=== PATIENT | female | born 2000 | race Caucasian/White ===

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

== ENCOUNTER 2018-11-19 00:20 | Observation (INO) | payer BC ==
[2018-11-19] VITALS (14 sets, daily range): BP systolic 104–128; BP diastolic 63–87
[~2018-11-19] VITALS: Ht 162.6 cm; Wt 70.8 kg
[2018-11-19] MEDS ORDERED: NS(*) 0.9% 1000 ML BAG 1,000 ML IV ONE (00:29)
[2018-11-19] MEDS ORDERED: fentaNYL CITR 100 MCG/2 ML AMP IVP ONE (00:30)
[2018-11-19] MEDS ORDERED: ONDANSETRON 4 MG/2 ML VIAL IVP ONE (00:30)
[2018-11-19] MEDS ORDERED: ETON1VAG7 VG (00:34)
[2018-11-19 00:54] LABS: PLATELET COUNT, AUTOMATED 289 K/uL (150-450)
[2018-11-19] MEDS ORDERED: KETOROLAC 30 MG/ML VIAL IVP ONE (00:55)
[2018-11-19] MEDS ORDERED: HYDROMORPHONE HCL 1 MG/ML SYRINGE IVP ONE ×2 (01:30→02:30)
[2018-11-19] MEDS ORDERED: IOPAMIDOL 61% 75 ML INFUS BTL 75 ML ONE (01:40)
--- NOTE | 2018-11-19 02:14 | RADIOLOGY IMAGING REPORT ---
FACILITY: [facility] PATIENT NAME: Mouna Humphries : 2000 MR: [id number] V: [id number] EXAM DATE: ORDERING PHYSICIAN: ABDULAZIZ BALBUENA TECHNOLOGIST: Location: [facility] [place] Patient: Mouna Humphries : 2000 Visit/Account:[id number] Date of Sevice: 11/19/2018 EXAMINATION: CT abdomen with IV contrast CT pelvis with IV contrast HISTORY: Severe right flank pain. COMPARISON: None. TECHNIQUE: Axial images were taken through the abdomen and pelvis with intravenous contrast. Sagitt al and coronal reformatted images are also submitted. CONTRAST: 75 mL of IV Isovue-370. One of the following dose optimization techniques was utilized in the performance of this exam: Autom ated exposure control; adjustment of the mA and/or kV according to the patient's size; or use of an i terative reconstruction technique. Specific details can be referenced in the facility's radiology C T exam operational policy. FINDINGS: Liver/biliary: Negative. Pancreas: Negative. Spleen: Negative. Adrenal glands: Negative. Kidneys: There are no renal stones visualized. Symmetric bilateral nephrograms without hydronephrosis . Pelvic structures: Uterus and ovaries are normal in appearance by CT. There is a ring contro l device in the upper vagina. Bowel: The appendix is abnormal. There is a 4 mm calcified appendicolith at the base of the appendix, and the appendix is retrocecal, extending posteriorly and superior to the cecum. The appendix is flu id-filled with enhancement of the arvizu measuring 8 mm (sagittal image 45 series 5). Peritoneum/retroperitoneum/mesenteries: Fat stranding adjacent to the appendix. No free air or fluid. Vessels: Negative. Musculoskeletal/body wall: Negative. Lymph nodes: Negative. Lower chest: Negative. IMPRESSION: Acute appendicitis of a retrocecal appendix. These findings were discussed with ABDULAZIZ BALBUENA at 11/19/2018 2:08 AM. Report Dictated By: Smitha Pollock MD at 11/19/2018 2:01 AM Report E-Signed By: Smitha Pollock MD at 11/19/2018 2:09 AM WSN:[id number]
--- NOTE | 2018-11-19 02:19 | ER Report ---
History and Physical Time Seen By MD: 00:27 Hx. of Stated Complaint: RIGHT SIDED LOWER ABDOMINAL PAIN STARTED 1 HOUR AGO HPI/ROS CHIEF COMPLAINT: Right lateral abdominal pain HISTORY OF PRESENT ILLNESS: 18-year-old female presented to the ER with acute onset of pain, one to 2 hours prior to arrival in the right lateral aspect of her abdomen. Patient notes severe nausea but no vomiting. She notes no dysuria or hematuria. Patient denies history of kidney stones. Patient has a history of a horse falling on her in June where she bruised her intestines. REVIEW OF SYSTEMS: Respiratory: No cough, no dyspnea. Cardiovascular: No chest pain, no palpitations. Gastrointestinal: As above Musculoskeletal: As above Allergies: Coded Allergies: No Known Drug Allergies (Unverified , 11/19/18) Home Meds Active Scripts Docusate Sodium (DOCUSATE SODIUM) 100 Mg Capsule, 1 CAP PO BID, #30 CAPSULE 0 Refills Prov:JASON MANCIA MD 11/19/18 Oxycodone/Acetaminophen (OXYCODONE/ACETAMINOPHEN 5MG/325 MG) 5 Mg/325 Mg Tab, 1 TAB PO Q4H PRN for PAIN, #20 TAB 0 Refills Prov:JASON MANCIA MD 11/19/18 Reported Medications Etonogestrel/Ethinyl Estradiol (NUVARING VAGINAL RING) 1 Each Vag.ring, 1 EACH VG, VAG.RING 11/19/18 Reviewed Nurses Notes: Yes Old Medical Records Reviewed: Yes Constitutional Vital Sign - Last 24 Hours 11/19/18 11/19/18 11/19/18 11/19/18 00:27 00:27 00:30 00:50 Temp 98.2 Pulse 115 ??? Resp 20 B/P (MAP) 130/87 130/87 (101) 141/72 (95) Pulse Ox 95 95 O2 Delivery Room Air 11/19/18 11/19/18 11/19/18 11/19/18 01:00 01:20 01:30 01:48 Pulse 82 B/P (MAP) 109/72 (84) 111/91 (98) 108/80 (89) Pulse Ox 95 11/19/18 11/19/18 11/19/18 11/19/18 01:50 02:00 02:01 02:06 Pulse 90 91 B/P (MAP) 101/65 (77) Pulse Ox 94 94 95 11/19/18 11/19/18 02:30 02:36 Pulse 101 B/P (MAP) 110/79 (89) Pulse Ox 93 Physical Exam General Appearance: The patient is alert, has no immediate need for airway protection and no current signs of toxicity. Moderate distress, vital signs stable, afebrile, pulse ox normal HEENT: Pupils equal and round no injection. Oropharynx without redness or exudate, mucous members are moist Respiratory: Chest is non tender, lungs are clear to auscultation. Cardiac: regular rate and rhythm Gastrointestinal: Abdomen is soft and non tender, no masses, bowel sounds normal. [place]. There is moderate tenderness high lateral middle quadrant. No rebound or guarding Musculoskeletal: Neck: Neck is supple and non tender. Extremities: Normal range of motion, no edema Skin: No rashes or lesions. DIFFERENTIAL DIAGNOSIS: After history and physical exam differential diagnosis was considered for abdominal pain including but not limited to appendicitis, cholecystitis, gastritis and urinary tract infection. Additionally,flank pain including but not limited to musculoskeletal causes, kidney stone, pyelonephritis, shingles, and intra-abdominal causes such as diverticulitis and appendicitis. Medical Decision Making Data Points Result Diagram: 11/19/18 0033 11/19/18 0033 Laboratory Hematology Test 11/19/18 00:25 11/19/18 00:33 Urine Color Straw Urine Clarity Clear Urine pH 6.0 pH (4.8-9.5) Urine Specific Mitchell 1.008 Urine Protein Negative mg/dL (NEGATIVE) Urine Glucose (UA) Negative mg/dL (NEGATIVE) Urine Ketones Negative mg/dL (NEGATIVE) Urine Blood Negative (NEGATIVE) Urine Nitrite Negative (NEGATIVE) Urine Bilirubin Negative (NEGATIVE) Urine Urobilinogen Negative mg/dL (0.2-1.9) Urine Leukocyte Esterase Negative (NEGATIVE) Urine RBC <1 /HPF (0-2/HPF) Urine WBC 2 /HPF (0-5/HPF) Urine Squamous Epithelial Cells Many /LPF (</=FEW) Urine Transitional Epithelial Cells Few /LPF (NONE-FEW) Urine Bacteria Few /HPF (NONE-FEW) Urine Mucus None /HPF (NONE-FEW) Red Blood Count 4.99 M/uL (4.17-5.56) Mean Corpuscular Volume 87.9 fL (80.0-96.0) Mean Corpuscular Hemoglobin 30.1 pg (26.0-33.0) Mean Corpuscular Hemoglobin Concent 34.2 g/dL (32.0-36.0) Red Cell Distribution Width 12.5 % (11.5-14.5) Mean Platelet Volume 6.6 fL (7.2-11.1) Neutrophils (%) (Auto) 54.8 % (39.4-72.5) Lymphocytes (%) (Auto) 37.5 % (17.6-49.6) Monocytes (%) (Auto) 6.9 % (4.1-12.4) Eosinophils (%) (Auto) 0.5 % (0.4-6.7) Basophils (%) (Auto) 0.3 % (0.3-1.4) Nucleated RBC Relative Count (auto) 0.0 /100WBC Neutrophils # (Auto) 4.6 K/uL (2.0-7.4) Lymphocytes # (Auto) 3.2 K/uL (1.3-3.6) Monocytes # (Auto) 0.6 K/uL (0.3-1.0) Eosinophils # (Auto) 0.0 K/uL (0.0-0.5) Basophils # (Auto) 0.0 K/uL (0.0-0.1) Nucleated RBC Absolute Count (auto) 0.00 K/uL D-Dimer Quantitative (PE/DVT) 0.35 ug/ml (0-0.50) Sodium Level 140 mmol/L (137-145) Potassium Level 3.4 mmol/L (3.5-5.0) Chloride Level 108 mmol/L (98-107) Carbon Dioxide Level 20 mmol/L (22-31) Blood Urea Nitrogen 10 mg/dl (7-18) Creatinine 0.70 mg/dl (0.52-1.04) Glomerular Filtration Rate Calc > 60.0 Random Glucose 88 mg/dl (75-110) Calcium Level 9.0 mg/dl (8.4-10.2) Total Bilirubin 0.3 mg/dl (0.2-1.3) Aspartate Amino Transf (AST/SGOT) 33 U/L (0-35) Alanine Aminotransferase (ALT/SGPT) 39 U/L (0-56) Alkaline Phosphatase 57 U/L (0-126) Total Protein 7.1 g/dl (6.3-8.2) Albumin 4.4 g/dl (3.5-5.0) Amylase Level 84 U/L (0-110) Lipase 118 U/L (23-300) Human Chorionic Gonadotropin, Qual Negative (NEGATIVE) Chemistry Test 11/19/18 00:25 11/19/18 00:33 Urine Color Straw Urine Clarity Clear Urine pH 6.0 pH (4.8-9.5) Urine Specific Mitchell 1.008 Urine Protein Negative mg/dL (NEGATIVE) Urine Glucose (UA) Negative mg/dL (NEGATIVE) Urine Ketones Negative mg/dL (NEGATIVE) Urine Blood Negative (NEGATIVE) Urine Nitrite Negative (NEGATIVE) Urine Bilirubin Negative (NEGATIVE) Urine Urobilinogen Negative mg/dL (0.2-1.9) Urine Leukocyte Esterase Negative (NEGATIVE) Urine RBC <1 /HPF (0-2/HPF) Urine WBC 2 /HPF (0-5/HPF) Urine Squamous Epithelial Cells Many /LPF (</=FEW) Urine Transitional Epithelial Cells Few /LPF (NONE-FEW) Urine Bacteria Few /HPF (NONE-FEW) Urine Mucus None /HPF (NONE-FEW) White Blood Count 8.4 k/uL (4.5-11.0) Red Blood Count 4.99 M/uL (4.17-5.56) Hemoglobin 15.0 g/dL (12.0-16.0) Hematocrit 43.9 % (34.0-47.0) Mean Corpuscular Volume 87.9 fL (80.0-96.0) Mean Corpuscular Hemoglobin 30.1 pg (26.0-33.0) Mean Corpuscular Hemoglobin Concent 34.2 g/dL (32.0-36.0) Red Cell Distribution Width 12.5 % (11.5-14.5) Platelet Count 289 K/uL (150-450) Mean Platelet Volume 6.6 fL (7.2-11.1) Neutrophils (%) (Auto) 54.8 % (39.4-72.5) Lymphocytes (%) (Auto) 37.5 % (17.6-49.6) Monocytes (%) (Auto) 6.9 % (4.1-12.4) Eosinophils (%) (Auto) 0.5 % (0.4-6.7) Basophils (%) (Auto) 0.3 % (0.3-1.4) Nucleated RBC Relative Count (auto) 0.0 /100WBC Neutrophils # (Auto) 4.6 K/uL (2.0-7.4) Lymphocytes # (Auto) 3.2 K/uL (1.3-3.6) Monocytes # (Auto) 0.6 K/uL (0.3-1.0) Eosinophils # (Auto) 0.0 K/uL (0.0-0.5) Basophils # (Auto) 0.0 K/uL (0.0-0.1) Nucleated RBC Absolute Count (auto) 0.00 K/uL D-Dimer Quantitative (PE/DVT) 0.35 ug/ml (0-0.50) Glomerular Filtration Rate Calc > 60.0 Calcium Level 9.0 mg/dl (8.4-10.2) Total Bilirubin 0.3 mg/dl (0.2-1.3) Aspartate Amino Transf (AST/SGOT) 33 U/L (0-35) Alanine Aminotransferase (ALT/SGPT) 39 U/L (0-56) Alkaline Phosphatase 57 U/L (0-126) Total Protein 7.1 g/dl (6.3-8.2) Albumin 4.4 g/dl (3.5-5.0) Amylase Level 84 U/L (0-110) Lipase 118 U/L (23-300) Human Chorionic Gonadotropin, Qual Negative (NEGATIVE) Coagulation Test 11/19/18 00:33 D-Dimer Quantitative (PE/DVT) 0.35 ug/ml Urinalysis Test 11/19/18 00:25 Urine Color Straw Urine Clarity Clear Urine pH 6.0 pH (4.8-9.5) Urine Specific Mitchell 1.008 Urine Protein Negative mg/dL (NEGATIVE) Urine Glucose (UA) Negative mg/dL (NEGATIVE) Urine Ketones Negative mg/dL (NEGATIVE) Urine Blood Negative (NEGATIVE) Urine Nitrite Negative (NEGATIVE) Urine Bilirubin Negative (NEGATIVE) Urine Urobilinogen Negative mg/dL (0.2-1.9) Urine Leukocyte Esterase Negative (NEGATIVE) Urine RBC <1 /HPF (0-2/HPF) Urine WBC 2 /HPF (0-5/HPF) Urine Squamous Epithelial Cells Many /LPF (</=FEW) Urine Transitional Epithelial Cells Few /LPF (NONE-FEW) Urine Bacteria Few /HPF (NONE-FEW) Urine Mucus None /HPF (NONE-FEW) EKG/Imaging Imaging Results: CT scan of the abdomen and pelvis with IV contrast was obtained. The results of the study are CT abdomen with IV contrast CT pelvis with IV contrast HISTORY: Severe right flank pain. COMPARISON: None. TECHNIQUE: Axial images were taken through the abdomen and pelvis with intra venous contrast. Sagittal and coronal reformatted images are also submitted. CONTRAST: 75 mL of IV Isovue-370. One of the following dose optimization techniques was utilized in the performance of this exam: Automated exposure control; adjustment of the mA and/or kV according to the patient's size; or use of an iterative reconstruction technique. Specific details can be referenced in the facility's radiology CT exam operational policy. FINDINGS: Liver/biliary: Negative. Pancreas: Negative. Spleen: Negative. Adrenal glands: Negative. Kidneys: There are no renal stones visualized. Symmetric bilateral nephrograms without hydronephrosis. Pelvic structures: Uterus and ovaries are normal in appearance by CT. There is a ring control device in the upper vagina. Bowel: The appendix is abnormal. There is a 4 mm calcified appendicolith at the base of the appendix, and the appendix is retrocecal, extending posteriorly and superior to the cecum. The appendix is fluid-filled with enhancement of the arvizu measuring 8 mm (sagittal image 45 series 5). Peritoneum/retroperitoneum/mesenteries: Fat stranding adjacent to the appendix. No free air or fluid. Vessels: Negative. Musculoskeletal/body wall: Negative. Lymph nodes: Negative. Lower chest: Negative. IMPRESSION: Acute appendicitis of a retrocecal appendix. The study was read by the radiologist. I viewed the images myself on the PACS system. ED Course/Re-evaluation Clinical Indication for ER IV: Hydration, IV Access ED Course Patient was admitted to an examination room. H&P was done. The differential diagnoses was considered. On clinical examination. Patient has high right middle quadrant abdominal pain on palpation. It's moderately tender. Patient's diagnostic studies are unremarkable. She is treated with Toradol, fentanyl and Zofran. She's given a liter fluid. She continues to have sick difficulty and discomfort. A CT scan of the abdomen and pelvis is ordered. She requires Dilaudid for pain relief. The CAT scan is positive for acute appendicitis. Patient was administered Zosyn 4.5 g here in the emergency department. 11/19/2018 2:26:59 am case discussed with Dr. Willard Laguna, general surgery on- call, who questioned patient be administered IV antibiotics and be admitted to the hospital. He will take her to the OR system 1st case in the morning in several hours. Holding orders were written. Decision to Disposition Date: Nov 19, 2018 Decision to Disposition Time: 02:18 Depart Departure Latest Vital Signs Vital Signs Date Time Temp Pulse Resp B/P (MAP) Pulse Ox O2 Delivery O2 Flow Rate FiO2 11/19/18 02:36 101 93 11/19/18 02:30 110/79 (89) 11/19/18 00:27 98.2 20 Room Air Impression: Primary Impression: Acute appendicitis Condition: Improved Disposition: Admitted from ER New Scripts Docusate Sodium (DOCUSATE SODIUM) 100 Mg Capsule 1 CAP PO BID, #30 CAPSULE 0 Refills Prov: JASON MANCIA MD 11/19/18 Oxycodone/Acetaminophen (OXYCODONE/ACETAMINOPHEN 5MG/325 MG) 5 Mg/325 Mg Tab 1 TAB PO Q4H PRN for PAIN, #20 TAB 0 Refills Prov: JASON MANCIA MD 11/19/18 Problem Qualifiers Primary Impression: Acute appendicitis Acute appendicitis type: with localized peritonitis Appendicitis gangrene presence: without gangrene Appendicitis perforation presence: without perforation Appendicitis abscess presence: without abscess Qualified Codes: K35.30 - Acute appendicitis with localized peritonitis, without perforation or gangrene ABDULAZIZ BALBUENA DO Nov 19, 2018 02:19
[2018-11-19] MEDS ORDERED: LR(*) 1000 ML BAG 1,000 ML IV PRN (02:30)
[2018-11-19] MEDS ORDERED: PIPERACILLIN/TAZO* 4.5 GM VIAL 4.5 GM in NS(*) 0.9% 100 ML ADDVANT BAG 100 ML IVPB ONE (02:30)
[2018-11-19] MEDS ORDERED: MORPHINE 4 MG/ML SDV IVP PRN (03:25)
[2018-11-19] MEDS ORDERED: LR 1000 ML IV PRN (03:25)
[2018-11-19] MEDS ORDERED: HYDROmorphone* 1 MG/ML 1 MG/ML ML IVP PRN (03:25)
[2018-11-19] MEDS ORDERED: ONDANSETRON 4 MG/2 ML VIAL IVP PRN ×2 (03:25→05:30)
[2018-11-19] MEDS ORDERED: FAMOTIDINE(*) 20MG/50ML PREMIX 50 ML IVPB ONE (05:19)
[2018-11-19] MEDS ORDERED: NORMOSOL R SOLN(*) 1000 ML BAG 1,000 ML IV ONE (05:20)
[2018-11-19] MEDS ORDERED: NS(*) 0.9% 1000 ML BAG 1,000 ML IV PRN (05:26)
[2018-11-19] MEDS ORDERED: FLUSH 10 ML SYR IVP PRN (05:30)
[2018-11-19] MEDS ORDERED: MORPHINE 2 MG/ML SYR IVP PRN (05:30)
--- NOTE | 2018-11-19 05:34 | Gen Surgery History & Physical ---
History of Present Illness Chief Complaint Right sided abdominal pain History of Present Illness 18yo female presents to the ER with 4 hours of right sided abdominal pain. CT c/w appendicitis. No anorexia, fevers, chills, diarrhea, constipation. She's recently had viral URI but now better. No h/o abdominal surgery. History Home Meds Reported Medications Etonogestrel/Ethinyl Estradiol (NUVARING VAGINAL RING) 1 Each Vag.ring, 1 EACH VG, VAG.RING 11/19/18 Allergies: Coded Allergies: No Known Drug Allergies (Unverified , 11/19/18) Patient History: FH: prostate cancer Review of Systems All Systems Reviewed/Normal: Yes, Except as Noted Gastrointestinal: Abdominal Pain Exam General Appearance: Alert, Awake, No Acute Distress, Afebrile Neuro: No Gross deficits Eyes: PERRLA GI: Other (Soft RLQ TTP focal peritoneal irritation) Extremities: Warm, Perfused Psych: Alert & Oriented X3, Appropriate Mood & Affect Medical Decision Making Data Points Result Diagram: 11/19/18 0033 11/19/18 0033 Assessment and Plan Problems: (1) Acute appendicitis Status: Acute Assessment & Plan: 11/19/18: Admit, NPO, IV fluids, IV abx, to OR this morning for lap appy. I have explained this plan and the surgery with the patient in great detail along with the alternatives, risks, and expected recovery. She indicates her understanding of this discussion and her questions have been answered. She would like to proceed with this plan including surgery. Condition Stable. Time Spent: < 30 min Venous Thromboembolism VTE Risk Physician Assess for VTE Risk: Yes Patient's VTE Risk: Low VTE Diagnostic Test 2 Days Prior to Admit: No Antithrombotics Is Pt On Any Antithrombotics?: No Problem Qualifiers (1) Acute appendicitis: Acute appendicitis type: with localized peritonitis Appendicitis gangrene presence: without gangrene Appendicitis perforation presence: without perforation Appendicitis abscess presence: without abscess Qualified Codes: K35.30 - Acute appendicitis with localized peritonitis, without perforation or gangrene JASON MANCIA MD Nov 19, 2018 05:34
[2018-11-19] MEDS ORDERED: MIDAZOLAM 2 MG/2 ML VIAL IVP PRN (06:15)
[2018-11-19] MEDS ORDERED: ONDANSETRON 4 MG/2 ML VIAL ONE (07:04)
[2018-11-19] MEDS ORDERED: SUCCINYLCHOL CHL 200MG/10ML VL ONE (07:04)
[2018-11-19] MEDS ORDERED: SUGAMMADEX SOD 500 MG/5 ML SDV ONE (07:04)
[2018-11-19] MEDS ORDERED: DEXAMETHASONE SOD PHOS 10MG/ML ONE (07:04)
[2018-11-19] MEDS ORDERED: PROPOFOL EMUL(*) 10MG/ML 20 ML 20 ML ONE (07:04)
[2018-11-19] MEDS ORDERED: KETOROLAC 30 MG/ML VIAL ONE (07:04)
[2018-11-19] MEDS ORDERED: PER PO (07:27)
[2018-11-19] MEDS ORDERED: DOCU-202 PO (07:27)
--- NOTE | 2018-11-19 07:29 | Short(Outpt) Discharge Summary ---
Discharge Summary Reason for Hosp/Final Diag: (1) Acute appendicitis Status: Acute Hospital Course & Plan: 11/19/18: Admit, NPO, IV fluids, IV abx, to OR this morning for lap amanday. I have explained this plan and the surgery with the patient in great detail along with the alternatives, risks, and expected recovery. She indicates her understanding of this discussion and her questions have been answered. She would like to proceed with this plan including surgery. 11/19/18 (postop): Lap appy completed without problems. Will d/c to home after she recovers from anesthesia this morning. Departure Discharge to: Home, Self Care Discharge Instructions Home Meds Active Scripts Docusate Sodium (DOCUSATE SODIUM) 100 Mg Capsule, 1 CAP PO BID, #30 CAPSULE 0 Refills Prov:JASON MANCIA MD 11/19/18 Oxycodone/Acetaminophen (OXYCODONE/ACETAMINOPHEN 5MG/325 MG) 5 Mg/325 Mg Tab, 1 TAB PO Q4H PRN for PAIN, #20 TAB 0 Refills Prov:JASON MANCIA MD 11/19/18 Reported Medications Etonogestrel/Ethinyl Estradiol (NUVARING VAGINAL RING) 1 Each Vag.ring, 1 EACH VG, VAG.RING 11/19/18 Follow up Referrals: General Surgery - 12/03/18 @ Surgery, General with JASON MANCIA MD You have a follow up appointment scheduled with Dr. Mancia on 12/03/18, at 9:00am. Diet: Regular Activity: As Tolerated Special Instructions: You may remove the white surgical dressings on 11/21/18, then you can shower. After showering, leave the incisions open to air but leave the steristrips in place until they fall off on their own. Do not immerse the incisions for 2 weeks. Avoid any activity that involves straining or lifting more than 10 pounds for 2 weeks after surgery. Problem Qualifiers (1) Acute appendicitis: Acute appendicitis type: with localized peritonitis Appendicitis gangrene presence: without gangrene Appendicitis perforation presence: without perforation Appendicitis abscess presence: without abscess Qualified Codes: K35.30 - Acute appendicitis with localized peritonitis, without perforation or gangrene JASON MANCIA MD Nov 19, 2018 07:29
[2018-11-19] MEDS ORDERED: fentaNYL CITR 100 MCG/2 ML AMP ONE (07:32)
--- NOTE | 2018-11-19 07:50 | Post Operative Progress Note ---
Post Operative Progress Note Date: Nov 19, 2018 Time: 07:30 Surgeon: Arnulfo Dictation number: [id number] Anesthesia: GETA by Dr. Oro Pre-Op Diagnosis: Acute appendicitis Post-Op Diagnosis: GE Findings: Inflamed but non-gangrenous or perforated appendix Procedure(s): Lap appy Specimen Removed:(May be N/A): Appendix Complications: None Fluids: See anesthesia record Estimated Blood Loss: Minimal Date OP Note Dictated: Nov 19, 2018 Time OP Note Dictated: 07:31 JASON MANCIA MD Nov 19, 2018 07:50
--- NOTE | 2018-11-19 08:20 | OPERATIVE REPORT 1 ---
EVENT DATE: November 19, 2018 SURGEON: Tony Arredondo MD ANESTHESIOLOGIST: Pako Oro MD ANESTHESIA: General endotracheal. PREOPERATIVE DIAGNOSIS Acute appendicitis. POSTOPERATIVE DIAGNOSIS Acute appendicitis. PROCEDURE PERFORMED Laparoscopic appendectomy. COMPLICATIONS None. CONDITION Stable. ESTIMATED BLOOD LOSS Minimal. INDICATIONS The patient is a 18-year-old female who presented to the emergency room with right sided abdominal pain with a CT scan that was consistent with acute appendicitis. She provided consent for a laparoscopic appendectomy. DESCRIPTION OF PROCEDURE The patient was brought to the operating room and placed supine on the operating table. General endotracheal anesthesia was administered and her abdomen was prepped and draped in a sterile fashion. A time-out was completed and I injected the infraumbilical skin with 0.5% ropivacaine plain. I made a curvilinear smiley-face incision in the infraumbilical rim and dissected through the dermis and subcutaneous fat. I identified the midline fascia and made a vertical incision in the midline fascia, grasped the fascial edges with Amy clamps and retracted the abdominal wall towards the ceiling, away from the underlying viscera. I penetrated the peritoneal cavity with my finger. I placed two interrupted 0 Vicryl sutures transversely through the vertical fascia defect and inserted a 12 mm Richardson type port through this wound and secured it into place with a suture. I insufflated the abdomen to a pressure of 15 mmHg and inserted a 5 mm, 30-degree angled scope through this port. Under direct visualization, I placed a 5 mm suprapubic port in the midline and then another 5 mm left lower quadrant port. The patient was placed in Trendelenburg and planed towards her left to remove the viscera away from the right lower quadrant. Then I swept the bowel from the right lower quadrant. Immediately, I could identify the base of the appendix, which was preceding retrocecally but rather loosely so, such that I did not really require any mobilization of the cecum. I pulled the appendix into view and divided the mesoappendix with the LigaSure device down to the base and then used the Endo-YULIA stapler with a blue load to divide the base of the appendix flush with the cecum and the appendix was placed in a surgical specimen retrieval bag and removed from the abdomen through the umbilical port site. I irrigated and dried the right lower quadrant and removed a couple of straight david. There was a little bit of oozing from the staple line and this was controlled with a single 5 mm clip. At the end of this, the divided mesoappendix and staple line were completely hemostatic and everything looked really good and I did not find any evidence of other intra-abdominal pathology. I then removed the 5 mm ports and then desufflated the abdomen and removed the camera from the umbilical port. I then placed another 0 Vicryl [id number] sutures transversely through the vertical fascial defect between the first two sutures and tied all three of these down. Good reapproximation of the fascial edges. I then closed the skin of each port site with 4-0 Monocryl subcuticular suture. Skin was cleaned and dried and Steri-Strips were applied followed by sterile surgical dressings. The patient was awakened, extubated in the operating room and transported to the recovery room in stable condition, having tolerated the procedure without any apparent problems. MEÑO
[2018-11-19] MEDS ORDERED: PIPERACILLIN/TAZO*3.375GM VIAL 3.375 GM in NS(*) 0.9% 100 ML ADDVANT BAG 100 ML IVPB ONE (08:30)
[2018-11-19] MEDS ORDERED: PANTOPRAZOLE SOD 40 MG IV VIAL IVP SCH (09:00)
[2018-11-19] MEDS ORDERED: DOCUSATE SODIUM 100 MG CAP PO SCH (09:00)
== END 2018-11-19 13:50 | disposition home or self-care (01) ==
LOC: ER 00:33 → MED 02:37 → INTOOBSV 02:37
PROVIDERS: ADMIT Surgery; ATTEND Surgery
DX: K35.30 Acute appendicitis with localized peritonitis, without perforation or gangrene (principal)
CPT/HCPCS: 44970; 74177; 81001; 82150; 83690; 84703; 85025; 85379; 88304; 96361; 96365; 96375; 96376; 99284; C9113; G0378; J0330; J1100; J1170; J1885; J2250; J2405; J2543; J2704; J3010; J7030; J7050; J7120; Q9967; 82040; 82247; 82310; 82374; 82435; 82565; 82947; 84075; 84132; 84155; 84295; 84450; 84460; 84520

== ENCOUNTER 2018-11-21 21:30 | Emergency (ER) | payer BC ==
[~2018-11-21 21:30] MED LIST: DOCU-202 PO; ETON1VAG7 VG; PER PO
--- NOTE | 2018-11-21 21:50 | ER Report ---
History and Physical Time Seen By MD: 21:50 Hx. of Stated Complaint: PATIENT STATES THAT SHE HAD HER APPENDIX OUT ON THURSDAY; PATIENT HAS NOT HAD A BOWEL MOVEMENT SINCE THEN AND IS HAVING PAIN AROUND HER BELLY BUTTON. HPI/ROS CHIEF COMPLAINT: abdominal pain HISTORY OF PRESENT ILLNESS: This is a 18 year old female. She had her appendix out 2 days ago. Has increasing abdominal pain since then. Shakila-umbilical. Has not had a bowel movement since the surgery. Is passing gas. No problems with dysuria, and is still urinating. Has been drinking fluids, but feels full and having nausea. Taking her stool softener. Using Percocet for pain, but not working very well, especially today. No shortness of breath or chest pain. Allergies: Coded Allergies: No Known Drug Allergies (Unverified , 11/19/18) Home Meds Active Scripts Docusate Sodium (DOCUSATE SODIUM) 100 Mg Capsule, 1 CAP PO BID, #30 CAPSULE 0 Refills Prov:JASON MANCIA MD 11/19/18 Oxycodone/Acetaminophen (OXYCODONE/ACETAMINOPHEN 5MG/325 MG) 5 Mg/325 Mg Tab, 1 TAB PO Q4H PRN for PAIN, #20 TAB 0 Refills Prov:JASON MANCIA MD 11/19/18 Reported Medications Etonogestrel/Ethinyl Estradiol (NUVARING VAGINAL RING) 1 Each Vag.ring, 1 EACH VG, VAG.RING 11/19/18 Reviewed Nurses Notes: Yes Hx Smoking: No Smoking Status: Never Smoker Hx Substance Use Disorder: No Hx Alcohol Use: Yes Constitutional Vital Sign - Last 24 Hours 11/21/18 11/21/18 11/21/18 11/21/18 21:38 21:39 22:00 22:30 Temp 98.4 Pulse 67 63 62 Resp 18 B/P (MAP) 117/77 (90) 117/77 109/73 (85) 108/66 (80) Pulse Ox 96 92 94 O2 Delivery Room Air 11/21/18 11/21/18 11/21/18 11/21/18 23:00 23:05 23:30 23:35 Pulse 55 ? B/P (MAP) 113/74 (87) ???/??? (7805) Pulse Ox 93 11/22/18 11/22/18 11/22/18/25/19 00:08 00:30 00:35 00:40 Pulse 66 63 B/P (MAP) 108/87 (94) 115/73 (87) Pulse Ox 91 89 11/22/18 11/22/18 11/22/18 11/22/18 01:00 01:10 01:40 01:57 Pulse 69 72 B/P (MAP) 112/74 (87) 116/76 (89) 113/66 (82) Pulse Ox 92 93 Intake and Output 11/21/18 11/21/18 11/22/18 15:00 23:00 07:00 Intake Total 1000 ml Balance 1000 ml Physical Exam General Appearance: The patient is alert. Having mild distress due to pain. Non-toxic in appearance. Eyes: Pupils are equal, round. No pallor, injection or icterus. ENT: Mucous membranes are moist. Respiratory: Lungs are clear to auscultation. Cardiovascular: Regular rate and rhythm. No murmurs, gallops or rubs. No edema. Gastrointestinal: Abdomen is soft, tender, mostly shakila-umbilical area. Nondistended. Hyperactive bowel sounds. Guarding, but no rebound. No costoverteb ral angle tenderness with percussion. Neurological: Alert and oriented x3. Cranial nerves II through XII show no acute deficits on my exam. No focal neurologic deficits in the extremities. Skin: Warm and dry. No scalp hematomas noted. Musculoskeletal: Extremities are nontender. No tenderness in palpation of the cervical, thoracic and lumbar spine. No pain with palpation of the scalp. DIFFERENTIAL DIAGNOSIS: After history and physical exam, differential diagnosis was considered for syncope including but not limited to vasovagal syncope, arrhythmia, dehydration, and blood loss. Also concerned about the possibility of head injury with concussion or intracranial bleed. Medical Decision Making Data Points Result Diagram: 11/21/18223011/21/182230 Laboratory Hematology Test 11/21/18 22:31 Red Blood Count 4.61 M/uL (4.17-5.56) Mean Corpuscular Volume 88.6 fL (80.0-96.0) Mean Corpuscular Hemoglobin 29.6 pg (26.0-33.0) Mean Corpuscular Hemoglobin Concent 33.4 g/dL (32.0-36.0) Red Cell Distribution Width 12.5 % (11.5-14.5) Mean Platelet Volume 6.7 fL (7.2-11.1) Neutrophils (%) (Auto) 29.1 % (39.4-72.5) Lymphocytes (%) (Auto) 62.0 % (17.6-49.6) Monocytes (%) (Auto) 7.0 % (4.1-12.4) Eosinophils (%) (Auto) 1.5 % (0.4-6.7) Basophils (%) (Auto) 0.4 % (0.3-1.4) Nucleated RBC Relative Count (auto) 0.0 /100WBC Neutrophils # (Auto) 1.8 K/uL (2.0-7.4) Lymphocytes # (Auto) 3.8 K/uL (1.3-3.6) Monocytes # (Auto) 0.4 K/uL (0.3-1.0) Eosinophils # (Auto) 0.1 K/uL (0.0-0.5) Basophils # (Auto) 0.0 K/uL (0.0-0.1) Nucleated RBC Absolute Count (auto) 0.00 K/uL Sodium Level 138 mmol/L (137-145) Potassium Level 3.6 mmol/L (3.5-5.0) Chloride Level 105 mmol/L (98-107) Carbon Dioxide Level 25 mmol/L (22-31) Blood Urea Nitrogen 11 mg/dl (7-18) Creatinine 0.70 mg/dl (0.52-1.04) Glomerular Filtration Rate Calc > 60.0 Random Glucose 75 mg/dl (75-110) Calcium Level 8.4 mg/dl (8.4-10.2) Total Bilirubin 0.2 mg/dl (0.2-1.3) Aspartate Amino Transf (AST/SGOT) 24 U/L (0-35) Alanine Aminotransferase (ALT/SGPT) 35 U/L (0-56) Alkaline Phosphatase 47 U/L (0-126) Total Protein 6.3 g/dl (6.3-8.2) Albumin 3.5 g/dl (3.5-5.0) Chemistry Test 11/21/18 22:31 White Blood Count 6.1 k/uL (4.5-11.0) Red Blood Count 4.61 M/uL (4.17-5.56) Hemoglobin 13.6 g/dL (12.0-16.0) Hematocrit 40.8 % (34.0-47.0) Mean Corpuscular Volume 88.6 fL (80.0-96.0) Mean Corpuscular Hemoglobin 29.6 pg (26.0-33.0) Mean Corpuscular Hemoglobin Concent 33.4 g/dL (32.0-36.0) Red Cell Distribution Width 12.5 % (11.5-14.5) Platelet Count 268 K/uL (150-450) Mean Platelet Volume 6.7 fL (7.2-11.1) Neutrophils (%) (Auto) 29.1 % (39.4-72.5) Lymphocytes (%) (Auto) 62.0 % (17.6-49.6) Monocytes (%) (Auto) 7.0 % (4.1-12.4) Eosinophils (%) (Auto) 1.5 % (0.4-6.7) Basophils (%) (Auto) 0.4 % (0.3-1.4) Nucleated RBC Relative Count (auto) 0.0 /100WBC Neutrophils # (Auto) 1.8 K/uL (2.0-7.4) Lymphocytes # (Auto) 3.8 K/uL (1.3-3.6) Monocytes # (Auto) 0.4 K/uL (0.3-1.0) Eosinophils # (Auto) 0.1 K/uL (0.0-0.5) Basophils # (Auto) 0.0 K/uL (0.0-0.1) Nucleated RBC Absolute Count (auto) 0.00 K/uL Glomerular Filtration Rate Calc > 60.0 Calcium Level 8.4 mg/dl (8.4-10.2) Total Bilirubin 0.2 mg/dl (0.2-1.3) Aspartate Amino Transf (AST/SGOT) 24 U/L (0-35) Alanine Aminotransferase (ALT/SGPT) 35 U/L (0-56) Alkaline Phosphatase 47 U/L (0-126) Total Protein 6.3 g/dl (6.3-8.2) Albumin 3.5 g/dl (3.5-5.0) EKG/Imaging Imaging COMPUTED TOMOGRAPHY ABDOMEN AND PELVIS WITHOUT INTRAVENOUS CONTRAST DATE OF EXAM: 11/21/2018 11:46 PM INDICATION: Abdominal pain and nausea/vomiting after appendectomy 2 days ago. COMPARISON: 11/19/2018. TECHNIQUE: Noncontrast abdomen and pelvis CT performed. Sagittal and coronal reconstructions were performed. One of the following dose optimization techniques was utilized in the performance of this exam: Automated exposure control; adjustment of the mA and/or kV according to the patient's size; or use of an iterative reconstruction technique. Specific details can be referenced in the facility's radiology CT exam operational policy. FINDINGS: Lung bases: Trace bilateral pleural effusions and mild atelectasis. Liver: Normal. Gallbladder and bile ducts: Normal. Spleen: Normal. Pancreas: Normal. Adrenals: Normal. Kidneys, ureters and bladder: Normal. Retroperitoneum and aorta: Normal aorta. No adenopathy. GI tract, mesentery and peritoneum: The appendix has been resected. There is trace fluid along the inferior aspect of the paracolic gutter end in the pelvis that is likely within expected limits. No drainable collection/abscess. No pneumatosis or pneumoperitoneum. Moderate to large volume of stool in the colon. Uterus and adnexa: Normal. Drug-eluting contraceptive ring in place. Bones and soft tissues: Mild multifocal inflammatory change in the anterior abdominal wall consistent with trocar sites. No apparent hematoma or abscess. Transitional lumbosacral vertebra. IMPRESSION: 1. Interval appendectomy with associated postoperative changes. No definite associated complication. 2. Moderate to large volume of stool in the colon suspicious for constipation. Report Dictated By: Eugene Jarquin MD at 11/22/2018 12:30 AM ED Course/Re-evaluation Clinical Indication for ER IV: Hydration, IV Access ED Course IV placed, fluids and pain medicine (Dilaudid 0.5mg) given. CT scan done, no acute problem noted other than constipation. Labs unremarkable. Second dose of Dilaudid 0.5mgm IV. Dulcolax supp given, mild production and feeling better. Discussed enema here, but she would prefer to continue to use laxatives at home. Decision to Disposition Date: Nov 22, 2018 Decision to Disposition Time: 01:57 Depart Departure Latest Vital Signs Vital Signs Date Time Temp Pulse Resp B/P (MAP) Pulse Ox O2 Delivery O2 Flow Rate FiO2 11/22/18 01:57 113/66 (82) 2/25/19 01:40 72 93 11/21/18 21:39 98.4 18 Room Air Impression: Primary Impression: Constipation Condition: Improved Disposition: HOME OR SELF-CARE Patient Instructions: Constipation (ED) Additional Instructions: You can use over the counter laxatives as needed as we discussed. Keep taking the stool softener twice a day. Problem Qualifiers Primary Impression: Constipation Constipation type: unspecified constipation type Qualified Codes: K59.00 - Constipation, unspecified VERNON BOO MD Nov 21, 2018 21:50
[2018-11-21] MEDS ORDERED: ONDANSETRON 4 MG/2 ML VIAL IVP ONE (21:55)
[2018-11-21] MEDS ORDERED: HYDROMORPHONE HCL 1 MG/ML SYRINGE IVP ONE (21:55)
[2018-11-21] MEDS ORDERED: NS(*) 0.9% 1000 ML BAG 1,000 ML IV ONE (21:55)
[2018-11-21 22:52] LABS: PLATELET COUNT, AUTOMATED 268 K/uL (150-450)
[2018-11-22] MEDS ORDERED: HYDROMORPHONE HCL 1 MG/ML SYRINGE IVP ONE (00:10)
--- NOTE | 2018-11-22 00:44 | RADIOLOGY IMAGING REPORT ---
FACILITY: [facility] PATIENT NAME: Mouna Humphries : 2000 MR: [id number] V: [id number] EXAM DATE: [id number] ORDERING PHYSICIAN: VERNON BOO TECHNOLOGIST: Location: [facility] [place] Patient: Mouna Humphries : 2000 Visit/Account:[id number] Date of Sevice: 11/21/2018 COMPUTED TOMOGRAPHY ABDOMEN AND PELVIS WITHOUT INTRAVENOUS CONTRAST DATE OF EXAM: 11/21/2018 11:46 PM INDICATION: Abdominal pain and nausea/vomiting after appendectomy 2 days ago. COMPARISON: 11/19/2018. TECHNIQUE: Noncontrast abdomen and pelvis CT performed. Sagittal and coronal reconstructions were pe rformed. One of the following dose optimization techniques was utilized in the performance of this e xam: Automated exposure control; adjustment of the mA and/or kV according to the patient's size; or u se of an iterative reconstruction technique. Specific details can be referenced in the facility's r adiology CT exam operational policy. FINDINGS: Lung bases: Trace bilateral pleural effusions and mild atelectasis. Liver: Normal. Gallbladder and bile ducts: Normal. Spleen: Normal. Pancreas: Normal. Adrenals: Normal. Kidneys, ureters and bladder: Normal. Retroperitoneum and aorta: Normal aorta. No adenopathy. GI tract, mesentery and peritoneum: The appendix has been resected. There is trace fluid along the inferior aspect of the paracolic gutter end in the pelvis that is likely within expected limits. No drainable collection/abscess. No pneumatosis or pneumoperitoneum. Moderate to large volume of stool in the colon. Uterus and adnexa: Normal. Drug-eluting contraceptive ring in place. Bones and soft tissues: Mild multifocal inflammatory change in the anterior abdominal wall consisten t with trocar sites. No apparent hematoma or abscess. Transitional lumbosacral vertebra. IMPRESSION: 1. Interval appendectomy with associated postoperative changes. No definite associated complication . 2. Moderate to large volume of stool in the colon suspicious for constipation. Report Dictated By: Eugene Jarquin MD at 11/22/2018 12:30 AM Report E-Signed By: Eugene Jarquin MD at 11/22/2018 12:38 AM WSN:[id number]
[2018-11-22] MEDS ORDERED: BISACODYL 10 MG SUPP PR ONE (01:05)
[2018-11-22 01:57] VITALS: BP 113/66
== END 2018-11-22 02:04 | disposition home or self-care (01) ==
LOC: ER 21:40
DX: K59.00 Constipation, unspecified (principal)
CPT/HCPCS: 74176; 85025; 96361; 96374; 96375; 99284; J1170; J2405; J7030; 82040; 82247; 82310; 82374; 82435; 82565; 82947; 84075; 84132; 84155; 84295; 84450; 84460; 84520; 99285